=== PATIENT | female | born 1995 | race African-American/Black ===

== ENCOUNTER 2017-11-17 21:27 | Emergency (ER) | payer BC ==
[~2017-11-17] VITALS: Ht 162.5 cm; Wt 90.7 kg
[~2017-11-17 21:27] MED LIST: BIRTH CONTROL1 EAC1 PO; CELEXA10 MG PO; IBU800 MG PO
[2017-11-17 23:46] LABS: BASO % 0.1 % (0.0-1.0); EOS % 0.2 % (1.0-4.0); HEMATOCRIT 43.2 % (37.0-47.0); HEMOGLOBIN 14.8 g/dl (12.0-16.0); LYMPH # 2.1 10*3/uL (1.3-4.4); LYMPH % 16.5 % (27.0-41.0); MEAN CELL VOLUME 90.2 fl (81.0-99.0); MEAN CORPUSCULAR HGB 30.9 pg (27.0-31.0); MEAN CORPUSCULAR HGB CONC 34.3 g/dl (33.0-37.0); MEAN PLATELET VOLUME 9.7 fl (9.6-12.3); MONO # 1.2 10*3/uL (0.1-1.0); NEUT # 9.5 10*3/uL (2.3-7.9); PLATELET COUNT AUTOMATED 297 10*3/uL (130-400); RED BLOOD COUNT 4.79 10*6/uL (4.10-5.10); RED CELL DISTRI WIDTH 12.8 % (0-14.5); WHITE BLOOD COUNT 12.8 10*3/uL (4.8-10.8)
[2017-11-18 00:06] LABS: ALBUMIN 3.8 gm/dl (3.1-4.5); ALKALINE PHOSPHATASE 70 U/L (45-117); BUN 10 mg/dl (7-24); CHLORIDE 104 mmol/L (98-107); SGOT/AST 10 IU/L (3-35); SGPT/ALT 25 U/L (12-78); SODIUM 140 mmol/L (136-145); TOTAL PROTEIN 8.2 gm/dL (6.4-8.2)
[2017-11-18] MEDS ORDERED: CLINDAMYCIN HC300 MG PO (00:44)
== END 2017-11-18 01:02 | disposition home or self-care (01) ==
LOC: ED 21:27
PROVIDERS: Physician Assistant
DX: K04.7 Periapical abscess without sinus (principal); R50.9 Fever, unspecified; R42 Dizziness and giddiness; Z88.0 Allergy status to penicillin

== ENCOUNTER 2018-07-09 03:58 | Emergency (ER) | payer BC ==
[~2018-07-09] VITALS: Ht 160 cm; Wt 74.8 kg
[~2018-07-09 03:58] MED LIST changes: +CLINDAMYCIN HC300 MG PO
[2018-07-09 04:25] LABS: EOS # 0.1 10*3/uL (0.0-0.4); EOS % 1.7 % (1.0-4.0); HEMATOCRIT 46.1 % (37.0-47.0); HEMOGLOBIN 15.3 g/dl (12.0-16.0); LYMPH # 2.1 10*3/uL (1.3-4.4); LYMPH % 44.3 % (27.0-41.0); MEAN CELL VOLUME 92.6 fl (81.0-99.0); MEAN CORPUSCULAR HGB 30.7 pg (27.0-31.0); MEAN CORPUSCULAR HGB CONC 33.2 g/dl (33.0-37.0); MEAN PLATELET VOLUME 10.2 fl (9.6-12.3); MONO # 0.5 10*3/uL (0.1-1.0); MONO % 9.6 % (3.0-9.0); NEUT # 2.1 10*3/uL (2.3-7.9); NEUT % 44.4 % (47.0-73.0); PLATELET COUNT AUTOMATED 240 10*3/uL (130-400); RED BLOOD COUNT 4.98 10*6/uL (4.10-5.10); RED CELL DISTRI WIDTH 13.2 % (0-14.5); WHITE BLOOD COUNT 4.8 10*3/uL (4.8-10.8)
[2018-07-09 04:45] LABS: ALBUMIN 3.4 gm/dl (3.1-4.5); ALKALINE PHOSPHATASE 58 U/L (45-117); BUN 6 mg/dl (7-24); CHLORIDE 109 mmol/L (98-107); CREATININE 0.87 mg/dL (0.55-1.02); POTASSIUM 4.1 mmol/L (3.5-5.1); SGOT/AST 14 IU/L (3-35); SODIUM 140 mmol/L (136-145); TOTAL PROTEIN 7.7 gm/dL (6.4-8.2)
[2018-07-09 04:46] LABS: BETA-HCG, QUANT < 1.0 mIU/mL (1-3); SGPT/ALT 13 U/L (12-78)
[2018-07-10] MEDS ORDERED: ZOFRAN4 MG PO (11:45)
[2018-07-10] MEDS ORDERED: CLEOCIN HCL150 MG PO (11:45)
[2018-07-10] MEDS ORDERED: IBU800 MG PO (11:45)
== END 2018-07-09 05:26 | disposition home or self-care (01) ==
LOC: ED 03:58
PROVIDERS: Student in an Organized Health Care Education/Training Program
DX: R51 Headache (principal); R42 Dizziness and giddiness; R41.0 Disorientation, unspecified; R53.1 Weakness; R25.1 Tremor, unspecified

== ENCOUNTER 2018-07-10 11:19 | Emergency (ER) | payer BC ==
[~2018-07-10] VITALS: Ht 162.5 cm; Wt 79.8 kg
[2018-07-10] MEDS ORDERED: CLEOCIN HCL150 MG PO (11:45)
[2018-07-10] MEDS ORDERED: ZOFRAN4 MG PO (11:45)
[2018-07-10] MEDS ORDERED: IBU800 MG PO (11:45)
== END 2018-07-10 11:56 | disposition home or self-care (01) ==
LOC: ED 11:19
DX: K04.7 Periapical abscess without sinus (principal); K02.9 Dental caries, unspecified; Z88.0 Allergy status to penicillin; Z88.1 Allergy status to other antibiotic agents

== ENCOUNTER 2019-12-13 14:59 | Emergency (ER) | payer OTHER ==
[~2019-12-13] VITALS: Ht 162.5 cm; Wt 90.7 kg
[~2019-12-13 14:59] MED LIST changes: +CLEOCIN HCL150 MG PO; +ZOFRAN4 MG PO
[2019-12-13] MEDS ORDERED: CLINDAMYCIN HC300 MG PO (15:17)
== END 2019-12-13 15:39 | disposition home or self-care (01) ==
LOC: ED 14:59
DX: K08.89 Other specified disorders of teeth and supporting structures (principal); Z88.0 Allergy status to penicillin; Z88.1 Allergy status to other antibiotic agents

== ENCOUNTER 2020-01-23 19:35 | Emergency (ER) | payer OTHER ==
[~2020-01-23] VITALS: Ht 162.5 cm; Wt 91.6 kg
[2020-01-23] MEDS ORDERED: CLEOCIN HCL300 MG PO (19:54)
== END 2020-01-23 20:03 | disposition home or self-care (01) ==
LOC: ED 19:35
DX: K04.7 Periapical abscess without sinus (principal); Z88.0 Allergy status to penicillin; Z88.8 Allergy status to other drugs, medicaments and biological substances; Z79.899 Other long term (current) drug therapy

== ENCOUNTER 2020-03-08 17:11 | Emergency (ER) | payer OTHER ==
[~2020-03-08] VITALS: Ht 162.5 cm; Wt 93.0 kg
[~2020-03-08 17:11] MED LIST changes: +CLEOCIN HCL300 MG PO
[2020-03-08] MEDS ORDERED: TRAMADOL HCL50 MG PO (18:42)
== END 2020-03-08 18:44 | disposition home or self-care (01) ==
LOC: ED 17:11
DX: S61.309A Unspecified open wound of unspecified finger with damage to nail, initial encounter (principal); F17.200 Nicotine dependence, unspecified, uncomplicated; X58.XXXA Exposure to other specified factors, initial encounter; Y93.89 Activity, other specified; Y92.89 Other specified places as the place of occurrence of the external cause; Y99.8 Other external cause status

== ENCOUNTER 2020-11-23 23:42 | Emergency (ER) | payer OTHER ==
[~2020-11-23] VITALS: Ht 162.5 cm; Wt 76.2 kg
[~2020-11-23 23:42] MED LIST changes: +TRAMADOL HCL50 MG PO
[2020-11-24] MEDS ORDERED: CLINDAMYCIN HC300 MG PO (01:48)
== END 2020-11-24 02:06 | disposition home or self-care (01) ==
LOC: ED 23:42
DX: K08.89 Other specified disorders of teeth and supporting structures (principal); F17.200 Nicotine dependence, unspecified, uncomplicated; Z88.0 Allergy status to penicillin; Z88.1 Allergy status to other antibiotic agents

== ENCOUNTER 2021-05-14 22:35 | Emergency (ER) | payer OTHER ==
[2021-05-14] MEDS ORDERED: VICO10300 PO (22:53)
[2021-05-14] MEDS ORDERED: CLINDAMYCIN HC300 MG PO (22:55)
[2021-05-15] MEDS ORDERED: TYLENOL325 M1 PO (13:58)
[2021-05-15] MEDS ORDERED: NAPROXEN250 MG PO (13:58)
[2021-05-15] MEDS ORDERED: ULTRAM50 MG PO (13:59)
== END 2021-05-14 22:54 | disposition home or self-care (01) ==
LOC: ED 22:35
DX: K04.7 Periapical abscess without sinus (principal); Z88.0 Allergy status to penicillin; Z88.1 Allergy status to other antibiotic agents

== ENCOUNTER 2021-09-04 15:50 | Emergency (ER) | payer OTHER ==
[~2021-09-04] VITALS: Wt 61.7 kg
[~2021-09-04 15:50] MED LIST changes: +NAPROXEN250 MG PO; +TYLENOL325 M1 PO; +ULTRAM50 MG PO; +VICO10300 PO
[2021-09-04] MEDS ORDERED: CLINDAMYCIN HC300 MG PO (16:54)
[2021-09-04] MEDS ORDERED: NAPROXEN250 MG PO (16:54)
[2021-09-04] MEDS ORDERED: TYLENOL325 M1 PO (16:54)
== END 2021-09-04 17:16 | disposition home or self-care (01) ==
LOC: ED 15:50
DX: K02.9 Dental caries, unspecified (principal); Z88.0 Allergy status to penicillin; Z88.1 Allergy status to other antibiotic agents

== ENCOUNTER 2022-05-27 09:30 | Emergency (ER) | payer OTHER ==
[~2022-05-27] VITALS: Ht 162.5 cm; Wt 55.3 kg
[2022-05-27] MEDS ORDERED: ALBUTEROL2.5 MG/0.5 INH ×2 (10:04)
[2022-05-27] MEDS ORDERED: NAPROXEN250 MG PO (10:04)
[2022-05-27] MEDS ORDERED: ZITHROMAX1 GM PO (10:04)
== END 2022-05-27 10:17 | disposition home or self-care (01) ==
LOC: ED 09:30
DX: K02.9 Dental caries, unspecified (principal); Z88.0 Allergy status to penicillin; Z88.8 Allergy status to other drugs, medicaments and biological substances

== ENCOUNTER 2024-10-10 08:23 | Emergency (ER) | payer OTHER ==
[~2024-10-10] VITALS: Ht 170.1 cm; Wt 80.3 kg
[~2024-10-10 08:23] MED LIST changes: +ALBUTEROL2.5 MG/0.5 INH; +ZITHROMAX1 GM PO
[2024-10-10] MEDS ORDERED: MELOXICAM15 MG PO (09:04)
[2024-10-10] MEDS ORDERED: CLINDAMYCIN HC300 MG PO (09:04)
[2024-10-10] MEDS ORDERED: IBUPROFEN 800 MG TAB PO ONE (09:05)
[2024-10-10] MEDS ORDERED: CLINDAMYCIN HCL 300 MG CAPSULE PO ONE (09:05)
== END 2024-10-10 09:33 | disposition home or self-care (01) ==
LOC: ED 08:23
DX: K04.7 Periapical abscess without sinus (principal); F17.290 Nicotine dependence, other tobacco product, uncomplicated; Z79.899 Other long term (current) drug therapy; K02.9 Dental caries, unspecified